=== PATIENT | female | born 1995 | race African-American/Black ===

== ENCOUNTER → 2016-12-12 | Emergency (ER) | payer MEDICAID ==
[~2016-12-12] VITALS: Ht 165.1 cm; Wt 58.1 kg
[~2016-12-12] MED LIST: BENTYL10 MG ORAL; Dicyclomine HCl 10mg/5ml oral soln ORAL ONE; PRILOSEC10 M1 ORAL; VITAMIN AND MI1 EAC1 PO
[2016-12-12 20:45] VITALS: BP 106/72
[2016-12-12 22:00] VITALS: BP 110/76
[2016-12-12 22:01] VITALS: BP 110/76
--- NOTE | 2016-12-13 00:18 | Emergency Room Report ---
History of Present Illness General Chief Complaint: Abdominal Pain Source: Patient Present Illness HPI Is a 21-year-old female presented after increased right upper quadrant pain as well as epigastric pain. Patient prior history of hernia to she had been noted have increased pain since yesterday. Patient been seen at [facility] for similar symptoms. Patient any fever. She been vomiting. She denied black or bloody stools. Allergies: Coded Allergies: EGG (Verified Allergy, Unknown, 12/12/16) Patient History Past Medical History: see triage record Last Menstrual Period: n/a Now: No - control Reviewed Nursing Documentation: PMH: Agreed, PSxH: Agreed Review of Systems All Other Systems: negative except mentioned in HPI Physical Exam Vital Signs Date Time Temp Pulse Resp B/P Pulse Ox O2 Delivery O2 Flow Rate FiO2 12/12/16 20:01 97.7 82 16 106/72 99 Room Air General Appearance: well appearing, no apparent distress, alert, GCS 15 Head: normocephalic, atraumatic ENT: hearing grossly normal, normal voice Neck: full range of motion, supple Respiratory: no respiratory distress, speaking full sentences Gastrointestinal: normal inspection, soft, other - diastasis of rectus muscles Musculoskeletal: no calf tenderness Neurologic: normal inspection, alert, oriented x3, responsive, utility teller III-XII nml as tested, normal gait Psychiatric: mood/affect normal Skin: no rash Medical Decision Making Diagnostic Impression: Primary Impression: Diastasis of rectus abdominis ER Course Patient presented for abdominal Pain. Differential diagnoses included ischemic bowel, appendicitis, perforated viscus, abdominal aortic aneurysm, inferior myocardial infarction, viral gastroenteritis. Patient's benign exam and does not appear to require any further imaging or laboratory testing at this time. Patient given a GI cocktail with improvement . The patient is advised to follow up with primary care doctor in 1-2 days. Patient is advised to return if any worsening condition or if any changes in status that are concerning. Labs Test 12/12/16 20:50 Urine HCG, Qualitative Negative Last Vital Signs Date Time Temp Pulse Resp B/P Pulse Ox O2 Delivery O2 Flow Rate FiO2 12/12/16 22:01 97.7 78 18 110/76 99 Room Air Status: improved Disposition: HOME, SELF-CARE Condition: Stable Scripts Omeprazole Magnesium (PRILOSEC) 10 Mg Suspdr.pkt 10 MG ORAL DAILY, #30 PACKET Prov: Hernan Tao 12/12/16 Dicyclomine Hcl* (BENTYL*) 10 Mg Capsule 10 MG ORAL FOUR TIMES A DAY, #30 CAP Prov: Hernan Tao 12/12/16 Referrals: NON PHYSICIAN (PCP) Patient Instructions: Abdominal Pain, Adult Hernan Tao Dec 13, 2016 00:18
== END | disposition home or self-care (01) ==
LOC: EMR 20:39
DX: Q79.59 Other congenital malformations of abdominal wall (principal); Z91.012 Allergy to eggs; Z79.3 Long term (current) use of hormonal contraceptives
CPT/HCPCS: 81025; 99284